=== PATIENT | female | born 1980 | race Caucasian/White ===

== ENCOUNTER 2018-10-17 14:05 | Observation (INO) | payer MEDICAID ==
[2018-10-17 14:48] LABS: PLATELET COUNT 239 10^3/uL (150-400)
== END 2018-10-17 15:50 | disposition home or self-care (01) ==
LOC: FLD 14:05
PROVIDERS: ADMIT Advanced Practice Midwife; ATTEND Advanced Practice Midwife
DX: O09.523 Supervision of elderly multigravida, third trimester (principal); R03.0 Elevated blood-pressure reading, without diagnosis of hypertension; Z3A.36 36 weeks gestation of pregnancy
CPT/HCPCS: G0378

== ENCOUNTER 2018-11-16 21:33 | Inpatient (IN) | payer MEDICAID ==
[2018-11-16] MEDS ORDERED: MISOPROSTOL 200 MCG TAB PO PRN (22:01)
[2018-11-16] MEDS ORDERED: LIDOCAINE 1% 300 MG/30 ML SDV SC PRN (22:01)
[2018-11-16] MEDS ORDERED: OXYTOCIN/RINGERS LACTATE 1,000 ML IV PRN (22:01)
[2018-11-16] MEDS ORDERED: OLIVE OIL 118 ML BTL MISC PRN (22:01)
[2018-11-16] MEDS ORDERED: AMMONIA AROMATIC 1 EACH AMP IH PRN (22:01)
[2018-11-16] MEDS ORDERED: IBUPROFEN 600 MG TAB PO PRN (22:01)
[2018-11-16] MEDS ORDERED: EPSOM SALT 454 GM TP PRN (22:01)
[2018-11-16] MEDS ORDERED: TERBUTALINE SULFATE 1 MG/ML VIAL IV PRN (22:01)
[2018-11-16] MEDS ORDERED: LR 1,000 ML IV PRN (22:01)
--- NOTE | 2018-11-16 22:17 | PDGENHP ---
History and Physical History and Physical: CARE: [facility] HPI: Patient is a 38 yo G 3 P 2 @ 40.2 weeks that presents to L&D with complaints of headache yesterday that is described as severe and did not improve with tylenol, visual changes reported as colorful halos that were affecting her vision for several hours this afternoon. EDC: 11/14/18 which is based on LMP: 02/14/18 which is known and consistent with Ultrasound at 15.6 weeks. Her is complicated by: AMA. NIPT wnl, level II u/s wnl. Review of Systems: Constitutional: Denies any fever, chills, or fatigue HEENT: reports visual changes earlier today (these have now resolved), difficulty swallowing, hearing loss Cardiovascular: Denies any chest pain, palpitations, leg swelling Respiratory: denies any cough, wheezing, or shortness of breathe GI: Denies any nausea, vomiting, diarrhea, constipation : denies any dysuria, urgency, frequency, vaginal bleeding Musculoskeletal: denies any muscle or bone pain Skin: denies any rashes Neuro: denies any headache, seizures, lightheadedness, dizziness, or loss of consciousness Psychiatric: denies any depression, anxiety, or SI/HI thoughts HISTORY: Previous OB history: pre-eclampsia with first . Hx of 2 prior >8 # Social history: , homemaker Family history: mGM hypertension, pGM blood clot, ETOHism Past medical history: kidney infection 2008, migraines Past surgical history: breast augmentation Medications: PNV Allergies: NKDA LABS: Rh: A+ ABS: Neg Rubella: Immune HbsAg: NR HIV: NR VDRL: NR 1hr: 106 GC: Neg Chlamydia: Neg Pap: Normal GBS: neg BMI: (prepreg) 23 PHYSICAL EXAM: Constitutional: WN, A&Ox3 HEENT: normocephalic atraumatic, supple Heart: RRR, no murmur Chest: CTA-B Skin: warm, dry, intact Abdomen: Soft, nontender, gravid SVE: 2/60/-2 Extremities: trace edema, negative homans sign Neuro: grossly normal Psych: normal affect assessment: FHT baseline 130, +accels, no decels, moderate variability Contractions: none Assessment: 1) 38 yo G 3 P 2 with IUP@ 40.2 weeks 2) no signs of labor 3) GBS neg 4) Cat 1 FHR tracing 5) elevated BP in 6) headache and visual changes post-term Plan: 1) Admit to L&D 2) induction of labor 3) plan cervical ripening tonight 4) anticipate
[2018-11-16] MEDS ORDERED: diphenhydrAMINE 25 MG CAP PO PRN (22:28)
[2018-11-16] MEDS ORDERED: CALCIUM CARBONATE 500 MG CHEWABLE TAB PO PRN (22:36)
[2018-11-16 22:42] LABS: PLATELET COUNT 230 10^3/uL (150-400)
[2018-11-16] MEDS: MISOPROSTOL 25 MCG CAP PO SCH (23:25)
[2018-11-17] MEDS ORDERED: ACETAMINOPHEN 325 MG TAB PO ONE (02:00)
[2018-11-17] MEDS: MISOPROSTOL 25 MCG CAP PO SCH ×2 (03:34→11:49)
[2018-11-17] MEDS ORDERED: LIDOCAINE 1% 300 MG/30 ML SDV ONE (05:30)
[2018-11-17] MEDS ORDERED: OLIVE OIL 118 ML BTL ONE (05:30)
[2018-11-17] MEDS ORDERED: MISOPROSTOL 200 MCG TAB ONE (05:31)
[2018-11-17] MEDS ORDERED: AMMONIA AROMATIC 1 EACH AMP IH ONE (05:31)
[2018-11-17] MEDS ORDERED: TERBUTALINE SULFATE 1 MG/ML VIAL ONE (05:31)
[2018-11-17] MEDS ORDERED: OXYTOCIN 10 UNIT/ML VIAL ONE (05:31)
--- NOTE | 2018-11-17 07:34 | OBDEL ---
Info Type: Vaginal Presentation at Delivery: Vertex L&D Analgesia/Anesthesia Type: None GBS+: No Intrapartum Medications: Generic Name Dose Route Start Last Admin Trade Name Freq PRN Reason Stop Dose Admin Calcium Carbonate 500 mg 11/16/18 22:36 11/16/18 23:25 Tums PO 05/15/19 22:35 500 mg TID PRN Administration Indigestion Diphenhydramine HCl 25 mg 11/16/18 22:28 11/17/18 00:06 Benadryl PO 05/15/19 22:27 25 mg HS PRN Administration Sleep/Insomnia Misoprostol 25 mcg 11/16/18 22:30 11/17/18 03:34 Cytotec PO 05/15/19 22:29 25 mcg Q4H MARLENE Administration Discontinued Medications Generic Name Dose Route Start Last Admin Trade Name Freq PRN Reason Stop Dose Admin Acetaminophen 650 mg 11/17/18 02:00 11/17/18 02:01 Tylenol PO 11/17/18 02:01 650 mg ONCE ONE Administration - Hospital Course Intrapartum: 11/17/18 07:29 Mom progressed rapidly to complete after second dose of cytotec. Pushed well, FHT reassuring throughout labor. Used nitrous for pain relief in second stage. Indications for Delivery: Gestational Hypertension Vaginal Delivery - Delivery Provider Delivery Physician/CNM: Ana Luisa Lomeli - Labor and Delivery Onset of Contractions Date: 11/17/18 Onset of Contractions Time: 01:30 Onset of Contractions Type: Induced Rupture of Membranes Date: 11/17/18 Rupture of Membranes Time: 05:00 Rupture of Membranes Type: Spontaneous Amniotic Fluid Color: Clear Dilation Complete Date: 11/17/18 Dilation Complete Time: 05:45 Placenta Delivery Date: 11/17/18 Placenta Delivery Time: 06:58 Total Hours of Labor: 5 Vaginal Sponge Count Correct: Yes Vaginal Needle Count Correct: Yes Vaginal Sweep Performed: Yes Delivery Events: Nuchal Cord, Other (Specify) (compound L hand) Delivery Comment: Head delivered over intact perineum. Nuchal hand and cord noted. Shoulders and body followed atraumatically with maternal effort. - Medications Labor Augmentation/Induction Methods Used: Misoprostol Labor Augmentation/Induction Indication: Other (Specify) (mom presented with mildly elevated BP and proteinurea. She had MORELAND and visual changes over the weekend so agreed to labor induction.) [place] Data SHERRIE: 11/14/18 Gestational Age: 40 week(s) and 3 day(s) [place] Delivery Date: 11/17/18 Delivery Time: 06:49 Sex of Infant: Female Score (1 Min): 8 Score (5 Min): 9 ICD10 Worksheet Patient Problems: Problems Problem Status Onset 40 weeks gestation of Acute Elevated blood pressure affecting in third trimester, antepartum Acute (normal spontaneous vaginal delivery) Acute Post term over 40 weeks Acute - ICD10 Problem Qualifiers (1) (normal spontaneous vaginal delivery)
[2018-11-17] MEDS: ACETAMINOPHEN 325 MG TAB PO PRN ×3 (07:59→20:38)
[2018-11-17] MEDS: IBUPROFEN 600 MG TAB PO PRN ×2 (14:24→20:37)
[2018-11-18] MEDS: IBUPROFEN 600 MG TAB PO PRN ×2 (02:38→08:19)
[2018-11-18] MEDS: ACETAMINOPHEN 325 MG TAB PO PRN ×2 (02:38→08:19)
[2018-11-18 08:15] VITALS: BP 113/74
--- NOTE | 2018-11-18 10:08 | OBGCSDC ---
General Delivery Information - General Info : 3 Para: 3 Abortions: 0 Type: Vaginal L&D Analgesia/Anesthesia Type: None Admission Date: 11/16/18 Labs: Patient ABO/Rh A POSITIVE 11/16/18 22:25 Hct 39.5 % (38.0-47.0) 11/16/18 22:25 - Hospital Course Intrapartum: 11/17/18 07:29 Mom progressed rapidly to complete after second dose of cytotec. Pushed well, FHT reassuring throughout labor. Used nitrous for pain relief in second stage. : 11/18/18 10:07 S) Pt doing well, reports min pain and bleeding. she is ambulating and voiding without difficulty. She is . She desires discharge home today. O) VSS, afebrile constitutional: WNF, A&Ox3 HEENT: normocephalic, atraumatic, supple Heart: RRR, No murmur Chest: CTA-B Breasts: soft, nontender,not engorged, nipples normal/intact Abdomen: Soft, nontender Uterus: Firm at U-2 Lochia: Minimal rubra Perineum: Intact, healing well Extremities: Trace edema, and negative Samuel's sign Neuro: Grossly normal A) 38-year-old S/P PPD#1 P) Discharge home today Continue Pelvic rest [id number] Discussed danger signs (infection, preeclampsia, depression, heavy bleeding, etc ) RTO in 2/4/6 weeks 11/18/18 10:07 Vaginal - Delivery Provider Delivery Physician/CNM: Ana Luisa Lomeli - Diagnosis Labor: Induced Rupture of Membranes Type: Spontaneous Amniotic Fluid Color: Clear Delivery Events: Nuchal Cord, Other (Specify) (compound L hand) [place] Data SHERRIE: 11/14/18 Gestational Age: 40 week(s) and 4 day(s) [place] Delivery Date: 11/17/18 Delivery Time: 06:49 Sex of Infant: Female Weight (gm): 3332 kg Score (1 Min): 8 Score (5 Min): 9
== END 2018-11-18 11:40 | disposition home or self-care (01) | DRG 560 ==
LOC: FLD 21:33 → OBSVTOIN 22:04 → FOB 11-17 10:44
PROVIDERS: ADMIT Advanced Practice Midwife; ATTEND Advanced Practice Midwife
PROC: 3E033VJ Introduction of Other Hormone into Peripheral Vein, Percutaneous Approach (ICD-10-PCS; principal; 2018-11-17)
PROC: 10E0XZZ Delivery of Products of Conception, External Approach (ICD-10-PCS; principal; 2018-11-17)
DX: O13.4 Gestational [pregnancy-induced] hypertension without significant proteinuria, complicating childbirth (principal); O69.82X0 Labor and delivery complicated by other cord entanglement, without compression, not applicable or unspecified; Z37.0 Single live birth; Z3A.40 40 weeks gestation of pregnancy
CPT/HCPCS: J2590; J3105